=== PATIENT | female | born 1950 | race Caucasian/White ===

== ENCOUNTER 2017-05-10 14:09 | Emergency (ER) | payer OTHER ==
[~2017-05-10] VITALS: Ht 152.4 cm; Wt 60.0 kg
[~2017-05-10 14:09] MED LIST: ACET1TAB40 PO; CYCL-319 PO; HTN MEDS; IBUP-1542 PO
[2017-05-10 14:11] VITALS: Ht 152.4 cm; Wt 60.0 kg
[2017-05-10] MEDS ORDERED: KETOROLAC 30 MG INJ IV STA (15:15)
--- NOTE | 2017-05-10 15:15 | ERD ---
ER Documentation Chief Complaint Chief Complaint BACK PAIN SINCE YESTERDAY HPI 66y/o female patient with history of hypertension, presents to the emergency department c/o sudden onset of lower back pain, constant, located bilateral, that started 1 day ago. The pain is sharp, rated 7/10, without radiation. The symptoms are probably caused by lifting a heavy box yesterday and are associated with decreased range of motion for lateral rotation. Aggravating factors: Lateral rotation. Alleviating factors: Unknown. Denies fever, chills, N /V/D. No recent history of previous episodes. Treatment attempted: None. Previous evaluation: None. History was given by patient. ROS All systems reviewed and are negative except as per history of present illness. Medications Home Meds Active Scripts Hydrocodone/Acetaminophen ([place] 5-325 Tablet) 1 Each Tablet, 1 TAB PO QHS for 5 Days, #12 TAB Prov:KIERA CHILDRESS MD 05/10/17 Ibuprofen* (Motrin*) 600 Mg Tab, 600 MG PO Q8 for PAIN LEVEL 6-10, #30 TAB Prov:KIERA CHILDRESS MD 05/10/17 Baclofen* (Baclofen*) 10 Mg Tablet, 10 MG PO TID for MUSCLE SPASMS, #15 TAB Prov:KIERA CHILDRESS MD 05/10/17 Acetaminophen with Codeine (Acetaminophen-Cod #3 Tablet) 1 Each Tablet, 1 TAB PO Q6H Y for PAIN, #12 TAB Prov:APRIL BENEDICT MD 06/10/16 Cyclobenzaprine Hcl* (Cyclobenzaprine Hcl*) 10 Mg Tablet, 10 MG PO Q8 Y for PAIN , #20 TAB Prov:APRIL BENEDICT MD 06/10/16 Ibuprofen* (Motrin*) 600 Mg Tab, 600 MG PO Q6H Y for PAIN, #30 TAB Prov:APRIL BENEDICT MD 06/10/16 Reported Medications [Htn Meds] No Conflict Check 07/17/12 Allergies Allergies: Coded Allergies: No Known Allergy (Unverified , 07/17/12) PMhx/Soc Hx Respiratory Disorders: Yes (PNEUMONIA , BRONCHITIS ) Hx Cardiac Disorders: Yes (HTN ) Hx Alcohol Use: No Hx Substance Use: No Hx Tobacco Use: No Physical Exam Vitals Vital Signs Date Time Temp Pulse Resp B/P Pulse Ox O2 Delivery O2 Flow Rate FiO2 05/10/17 14:11 98.1 91 18 160/ 72 Physical Exam Patient is in no acute distress, vital signs stable. Alert and fully oriented. EYES: PERRLA, EOMI, Sclera and conjunctiva appear normal. EARS: Canals clear, tympanic membranes WNL THROAT: Normal oropharynx. NECK: Supple, No lymphadenopathy. Full ROM without pain or tenderness. HEART: RRR, no rubs, murmurs, clicks or gallops. LUNGS: Clear to auscultation. ABDOMEN: Soft, non-tender without masses or hepatosplenomegaly. EXTREMITIES: No edema bilaterally. BACK: Normal inspection, decreased ROM for lateral rotation, no deformity, normal back exam, no vertebral tenderness NEURO: Cranial nerves grossly intact, no motor or sensory deficit Results 24 hrs Laboratory Tests Test 05/10/17 15:23 Bedside Urine pH (LAB) 7.5 Bedside Urine Protein (LAB) Negative Bedside Urine Glucose (UA) 0.1% Bedside Urine Ketones (LAB) Negative Bedside Urine Blood 1+ Bedside Urine Nitrite (LAB) Negative Bedside Urine Leukocyte Esterase (L Negative Current Medications Medications (Trade) Dose Ordered Sig/Isabelle Route PRN Reason Start Time Stop Time Status Last Admin Dose Admin Ketorolac Tromethamine (Toradol) 30 mg ONCE STAT IV 05/10/17 15:15 05/10/17 15:17 DC 05/10/17 15:24 Procedures/MDM 66y/o female patient with history of hypertension, presents to the ED c/o lower back pain for 1 day. Vital signs stable, Physical exam unremarkable, neurovascular exam intact. Differential diagnosis include but not limited to: Acute musculoskeletal injury, herniated disc, urolithiasis, UTI, arthritis, degenerative disc disease. Low suspicion for vertebral fracture, cauda equina syndrome, psoas abscess. Pertinent Data: UA: Normal, no evidence of infection Physical examination and clinical presentation consistent most likely with acute muscle spasm of the lower back. During the ED course the patient remained stable, no new complaints. Received treatment with Toradol presenting overall improvement of the symptoms. Results and clinical impression discussed with patient who agrees with management. The patient is stable to be treated outpatient and will be discharged home with a Rx for baclofen, [place], ibuprofen. Side effects of prescribed medications (headache, rash, nausea, vomiting, diarrhea) were reviewed. Side effects of prescribed opiates (drowsiness, habituation) were reviewed. Side effects of prescribed NSAID medication (GI distress, edema, bleeding, HTN) were reviewed. The patient was instructed to follow up with the primary care provider in the next 48h. If symptoms persist, worsen or new symptoms develop, then patient should return to the ED immediately. Instructions explained and given to patient in Kazakh with acknowledgment and demonstrated understanding. Disclaimer: Inadvertent spelling and grammatical errors are likely due to EHR/ dictation software use and do not reflect on the overall quality of patient care. Also, please note that the electronic time recorded on this note does not necessarily reflect the actual time of the patient encounter. Departure Diagnosis: Primary Impression: Back muscle spasm Condition: Stable Patient Instructions: Back And Neck Pain, General Additional Instructions: Muchas chaya por [facility] para long servicio. Esperamos que en long visita a la elen de emergencia long problema medico haya sido solucionado y que se sienta mucho mejor. Para estar seguros que long mejoria sigue en proceso, le pedimos el favor de hacer rajeev chasity de seguimiento medico con long doctor primario en los proximos 2-4 fernandes. Lleve con usted estos documentos y las medicinas recetadas. Si kadeem sintomas empeoran y no puede caprice a long doctor, por favor regrese a elen de emergencia. En codie que usted no tenga un mdico de atencin primaria: Llame al mdico o clnica comunitaria de referencia que aparece abajo yuki las horas de consultorio para hacer rajeev chasity para que le vean. CLINICAS: [facility] [phone] [facility] [phone] [facility] [phone] [facility] [phone] [place] [id number] [phone] [facility] [phone] KIERA JUAN MD May 10, 2017 15:14
[2017-05-10 15:23] LABS: URINE BLOOD (Dip) POC 1+ (NEGATIVE)
[2017-05-10] MEDS ORDERED: HYDR-906 PO (15:56)
[2017-05-10] MEDS ORDERED: BACL10TA PO (15:56)
[2017-05-10] MEDS ORDERED: IBUP-1542 PO (15:56)
[2017-05-10 16:17] VITALS: PULSE 74; RESP 18
== END 2017-05-10 16:25 | disposition home or self-care (01) ==
LOC: FTE 14:09
DX: M62.830 Muscle spasm of back (principal); I10 Essential (primary) hypertension
CPT/HCPCS: 81003; 96374; J1885; Z7502

== ENCOUNTER 2017-07-23 16:41 | Emergency (ER) | END 2017-07-23 21:39 | disposition home or self-care (01) ==